=== PATIENT | male | born 2000 | race Caucasian/White ===

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

== ENCOUNTER 2024-04-28 16:04 | Emergency (ER) | payer OTHER ==
[2024-04-28] MEDS: Diphtheria,Pertussis(Acell),Tetanus Vaccine 0.5 ML Syringe IM ONE (16:34)
[2024-04-28] MEDS: Lidocaine 1% 10 ML MDV INJECT ONE (16:34)
[2024-04-28 17:24] VITALS: BP 98/52; PULSE 78
== END 2024-04-28 17:23 | disposition home or self-care (01) ==
LOC: JD.ED 16:04
DX: S61.512A Laceration without foreign body of left wrist, initial encounter (principal); Z86.16 Personal history of COVID-19; W26.8XXA Contact with other sharp object(s), not elsewhere classified, initial encounter; Y99.0 Civilian activity done for income or pay; Z23 Encounter for immunization
CPT/HCPCS: 12002; 90471; 90715; 99282; 99282-25; J3490